=== PATIENT | female | born 1990 | race Caucasian/White ===

== ENCOUNTER 2021-07-03 10:04 | Observation (INO) ==
[2021-07-03] MEDS ORDERED: Ringers Solution, Lactated 1,000 ML IVC SCH (11:00)
[2021-07-03 11:42] LABS: Basophils % 0.3 %; Eosinophils # 0.1 K/mcL (0.0-0.6); Hematocrit 37.2 % (35.3-44.9); Hemoglobin 12.6 g/dL (11.5-15.4); Immature Granulocytes % 0.2 % (0-4); Lymphocytes # 3.6 K/mcL (0.6-4.6); Lymphocytes % 36.2 %; Mean Corpuscular HGB Conc 33.9 g/dL (31.6-35.5); Mean Corpuscular Hemoglobin 30.2 pg (28.0-33.3); Mean Corpuscular Volume 89.2 fL (83.0-100.0); Monocytes # 0.5 K/mcL (0.0-1.3); Monocytes % 5.5 %; Neutrophils # 5.6 K/mcL (1.6-8.9); Platelet Count 299 K/mcL (140-400); Red Blood Count 4.17 M/mcL (3.82-4.97); Red Cell Distribution Width 12.8 % (11.5-14.5); Segmented Neutrophils % 56.8 %; White Blood Count 9.8 K/mcL (4.3-11.1)
[2021-07-03] MEDS ORDERED: Ondansetron 4 MG/2 ML VIAL IVP PRN (11:47)
[2021-07-03] MEDS ORDERED: *HR* FentaNYL (PF) 100 MCG/2 ML VIAL IVP PRN (11:47)
[2021-07-03] MEDS ORDERED: *HR* OxyCODONE Immed Rel 5 MG TABLET PO PRN (11:47)
[2021-07-03] MEDS ORDERED: *HR* Propofol 200 MG/20 ML VIAL IVP ONE (11:52)
[2021-07-03] MEDS ORDERED: *HR* Midazolam HCl 2 MG/2 ML VIAL ONE (11:52)
[2021-07-03] MEDS ORDERED: *HR* FentaNYL (PF) 100 MCG/2 ML VIAL ONE (11:52)
[2021-07-03] MEDS ORDERED: Lidocaine -MPF 2% 5 ML VIAL ONE (11:54)
[2021-07-03] MEDS ORDERED: Ondansetron 4 MG/2 ML VIAL ONE (11:54)
[2021-07-03] MEDS ORDERED: Acetaminophen IV 1,000 MG/100 ML BAG IVPB ONE (11:55)
[2021-07-03] MEDS ORDERED: Ketorolac 30 MG/ML VIAL ONE (11:56)
[2021-07-03] MEDS ORDERED: Doxycycline 100 MG in 0.9 % Sodium Chloride 250 ML IVPB ONE (12:53)
[2021-07-03] MEDS ORDERED: Ringers Solution, Lactated 1,000 ML ONE (13:16)
[2021-07-03 16:21] LABS: Hematocrit 27.5 % (35.3-44.9); Hemoglobin 9.4 g/dL (11.5-15.4)
[2021-07-03 17:40] LABS: Hematocrit 26.9 % (35.3-44.9); Hemoglobin 9.4 g/dL (11.5-15.4)
[2021-07-03] MEDS ORDERED: miSOPROStoL 100 MCG TABLET RC ONE (18:12)
[2021-07-03] MEDS ORDERED: Methylergonovine 0.2 MG/ML AMPUL IM ONE (18:12)
== END 2021-07-03 18:13 | disposition home or self-care (01) ==
LOC: SAMDAY 10:04 → 1NENULAB 10:04
PROVIDERS: ADMIT Student in an Organized Health Care Education/Training Program; ATTEND Student in an Organized Health Care Education/Training Program